=== PATIENT | male | born 1965 | race Two or more races ===

== ENCOUNTER 2016-09-25 10:40 | Inpatient (IN) | payer OTHER ==
[2016-09-25] MEDS ORDERED: ONDANSETRON 4 MG/2 ML VIAL IVPB ONE (11:07)
[2016-09-25] MEDS ORDERED: MAG HYDROX/AL HYDROX/SIMETH 30 ML UNIT-DOSE CUP PO ONE (11:07)
[2016-09-25] MEDS ORDERED: FAMOTIDINE 20 MG/50 ML IVPB 50 ML IVPB ONE ×2 (11:07→11:25)
[2016-09-25] MEDS ORDERED: SODIUM CHLORIDE 1,000 ML IV STA ×2 (11:07→12:36)
[2016-09-25] MEDS ORDERED: morphine CARPU-JECT 4 MG/1 ML DISP.SYRIN IVPUSH ONE ×2 (11:07→16:59)
[2016-09-25] MEDS ORDERED: ACETAMINOPHEN 325 MG TABLET (FP) PO ONE (11:07)
--- NOTE | 2016-09-25 11:16 | PDOC ---
History of Present Illness - General History Source: Patient, Old Records Exam Limitations: No Limitations <Andrzej Castro - Last Filed: 09/25/16 16:41> - General History Source: Patient - History of Present Illness Initial Comments: 09/25/16 11:20 The patient is a 51 year old male with a significant past medical history of HLD , diverticulitis, and CAD s/p [place] who presents to the Emergency Department with complaints of abdominal pain, nausea, vomiting, and diarrhea since 2:00pm yesterday. Pt reports multiple episodes of diarrhea and vomiting since yesterday. Pt went to [facility] on Monday for an elective cardiac catheterization, where they attempted to open up a clot, but the pt reports that it was unsuccessful. He denies fever, chill, chest pain, SOB, hematuria, dysuria, back pain, headache, dizziness. Pt has a >102 fever rectally while in the ER. (-)sick contact (-) recent travel PSH:cholecystectomy SH: former smoker. Former EtOH use (quit last month) PCP: Dr. Adilson Marinelli <Merline Will - Last Filed: 09/25/16 16:45> - General Chief Complaint: Pain Stated Complaint: ABD PAIN, DIARRHEA, WEAKNESS Time Seen by Provider: 09/25/16 10:56 Past History - Past Medical History Diabetes: Yes GI Disorders: Yes (DIVERTICULITIS) Hypercholesterolemia: Yes Suicide Attempt (Hx): No - Surgical History Cardiac Surgery: Yes (STENT) Cholecystectomy: Yes - Psycho/Social/Smoking Cessation Hx Anxiety: No Suicidal Ideation: No Smoking Status: Yes Smoking History: Never smoked Number of Cigarettes Smoked Daily: 10 Cigars Per Day: 0 'Breaking Loose' booklet given: 08/15/16 Hx Alcohol Use: No Drug/Substance Use Hx: No Substance Use Type: None <Andrzej Castro - Last Filed: 09/25/16 16:41> <Merline Will - Last Filed: 09/25/16 16:45> - Past Medical History Allergies/Adverse Reactions: Allergies Allergy/AdvReac Type Severity Reaction Status Date / Time No Known Allergies Allergy Verified 09/25/16 10:48 Home Medications: Ambulatory Orders Aspirin [Children's Aspirin] 81 mg PO DAILY 09/25/16 Atorvastatin Ca [Lipitor] 80 mg PO HS 09/25/16 Clopidogrel Bisulfate [Plavix -] 75 mg PO DAILY 09/25/16 Lisinopril [Zestril] 2.5 mg PO DAILY 09/25/16 Metformin HCl 500 mg PO DAILY 09/25/16 Metoprolol Succinate [Toprol Xl -] 25 mg PO DAILY 09/25/16 Review of Systems - Review of Systems Able to Perform ROS?: Yes Comments:: 09/25/16 11:21 GENERAL/CONSTITUTIONAL: No fever or chills. No weakness. HEAD, EYES, EARS, NOSE AND THROAT: No change in vision. No ear pain or discharge. No sore throat. CARDIOVASCULAR: No chest pain or shortness of breath. RESPIRATORY: No cough, wheezing, or hemoptysis. GASTROINTESTINAL: Yes: abdominal pain, nausea, vomiting, diarrhea No constipation. GENITOURINARY: No dysuria, frequency, or change in urination. MUSCULOSKELETAL: No joint or muscle swelling or pain. No neck or back pain. SKIN: No rash NEUROLOGIC: No headache, vertigo, loss of consciousness, or change in strength/ sensation. ENDOCRINE: No increased thirst. No abnormal weight change. HEMATOLOGIC/LYMPHATIC: No anemia, easy bleeding, or history of blood clots. ALLERGIC/IMMUNOLOGIC: No hives or skin allergy. All Other Systems: Reviewed and Negative <Merline Will - Last Filed: 09/25/16 16:45> *Physical Exam - Vital Signs Last Vital Signs Temp Pulse Resp BP Pulse Ox 97.7 F 130 H 20 116/68 95 09/25/16 10:46 09/25/16 10:46 09/25/16 10:46 09/25/16 10:46 09/25/16 10:46 <Andrzej Castro - Last Filed: 09/25/16 16:41> - Vital Signs Last Vital Signs Temp Pulse Resp BP Pulse Ox 97.7 F 130 H 20 116/68 95 09/25/16 10:46 09/25/16 10:46 09/25/16 10:46 09/25/16 10:46 09/25/16 10:46 - Physical Exam Comments: 09/25/16 11:23 GENERAL: Awake, alert, and fully oriented, in no acute distress HEAD: No signs of trauma EYES: PERRLA, EOMI, sclera anicteric, conjunctiva clear ENT: Auricles normal inspection, hearing grossly normal, nares patent, oropharynx clear without exudates. Moist mucosa NECK: Normal ROM, supple, no lymphadenopathy, JVD, or masses LUNGS: Breath sounds equal, clear to auscultation bilaterally. No wheezes, and no crackles HEART: +tachycardia. normal S1 and S2, no murmurs, rubs or gallops ABDOMEN: +Superpubic lower quadrant tenderness. Soft, normoactive bowel sounds. No guarding, no rebound. No masses EXTREMITIES: Normal range of motion, no edema. No clubbing or cyanosis. No cords, erythema, or tenderness NEUROLOGICAL: Cranial nerves II through XII grossly intact. Normal speech, normal gait SKIN: Warm, Dry, normal turgor, no rashes or lesions noted. <Merline Will - Last Filed: 09/25/16 16:45> Heart Score/ECG Review #1 ECG reviewed & interpreted by me at: 17:10 09/25/16 11:16 NSR 124, Q wave III, aVF, no std/maynor, normal axis, normal intervals QTC 442 msec <Andrzej Castro - Last Filed: 09/25/16 16:41> ED Treatment Course - LABORATORY CBC & Chemistry Diagram: 09/25/16 11:35 09/25/16 11:35 - RADIOLOGY Radiology Studies Ordered: Category Date Time Status ABDOMEN & PELVIS CT WITH CONTR [CT] Stat CT Scan 09/25/16 11:07 Ordered CHEST X-RAY PORTABLE* [RAD] Stat Radiology 09/25/16 11:06 Ordered <Andrzej Castro - Last Filed: 09/25/16 16:41> - LABORATORY CBC & Chemistry Diagram: 09/25/16 11:35 09/25/16 11:35 <Merline Will - Last Filed: 09/25/16 16:45> Medical Decision Making - Medical Decision Making 09/25/16 11:10 A portion of this note was documented by scribe services under my direction. I have reviewed the details of the note, within reason, and agree with the documentation with the following case summary and management plan written by me. Patient treated in the ED. Nursing notes are reviewed and incorporated into the medical decision-making. Vital signs reviewed. Peripheral IV access obtained by the nurse, laboratory studies are drawn and sent, reviewed and interpreted by myself. Vital Signs Temp Pulse Resp BP Pulse Ox 97.7 F 130 H 20 116/68 95 09/25/16 10:46 09/25/16 10:46 09/25/16 10:46 09/25/16 10:46 09/25/16 10:46 51 year old male with pmh HLD, CAD s/p [place], hx diverticulitis presents to the ED for nausea, vomiting, diarrhea and lower abdominal pain. The patient is having uncontrollable amounts of diarrhea and vomiting. Reports feels somewhat like his diverticulitis. No fevers or sick contacts. As of note, 2 days ago, he went to [facility] for an elective cardiac catheterization where they attempted to "open up a clot", but the patient reports that it was unsuccessful. The patient is noted to have a fever here rectally > 102 degrees. Differential includes diverticulitis, gastroenteritis, colitis. Will obtain labs and CT abdomen and pelvis, treat symptoms, and give IVF and reassess. 09/25/16 16:42 Ct abdomen and pelvis reviewed. No acute findings. CBC, BMP 09/25/16 11:35 09/25/16 11:35 CMP Sodium 142 mmol/L (136-145) 09/25/16 11:35 Potassium 4.2 mmol/L (3.5-5.1) 09/25/16 11:35 Chloride 108 mmol/L (98-107) H 09/25/16 11:35 Carbon Dioxide 22 mmol/L (21-32) 09/25/16 11:35 Anion Gap 12 (8-16) 09/25/16 11:35 BUN 25 mg/dL (7-18) H D 09/25/16 11:35 Creatinine 1.2 mg/dL (0.7-1.3) 09/25/16 11:35 Creat Clearance w eGFR > 60 (>60) 09/25/16 11:35 Random Glucose 157 mg/dL (74-106) H 09/25/16 11:35 Lactic Acid 3.686 mmol/L (0.4-2.0) H* 09/25/16 15:00 Calcium 8.7 mg/dL (8.5-10.1) 09/25/16 11:35 Total Bilirubin 1.6 mg/dL (0.2-1.0) H D 09/25/16 11:35 AST 17 U/L (15-37) D 09/25/16 11:35 ALT 63 U/L (12-78) 09/25/16 11:35 Alkaline Phosphatase 91 U/L (45-117) 09/25/16 11:35 Creatine Kinase 100 IU/L (39-308) 09/25/16 11:35 Troponin I < 0.02 ng/ml (0.00-0.05) D 09/25/16 11:35 Total Protein 8.3 g/dl (6.4-8.2) H 09/25/16 11:35 Albumin 4.4 g/dl (3.4-5.0) 09/25/16 11:35 Labs noted. Lactic acid initially 2.9. After IVF, repeat was 3.7. Given these findings, blood cultures and zosyn ordered. Case discussed with DR. Ayala who accepted the patient to med/surg admission. Case discussed in detail with admitting physician including history, physical exam and ancillary studies. Admitting physician has assumed care for the patient, will follow all pending diagnostics and will complete the evaluation and treatment. <Andrzej Castro - Last Filed: 09/25/16 16:41> - Medical Decision Making 09/25/16 16:20 Dr. Rekha Ayala was paged at [phone] 09/25/16 16:45 case was discussed with Dr. Ayala. <Merline Will - Last Filed: 09/25/16 16:45> *DC/Admit/Observation/Transfer - Discharge Dispostion Admit: Yes <Andrzej Castro - Last Filed: 09/25/16 16:41> - Attestations Scribe Attestion: 09/25/16 11:24 Documentation prepared by Merline Will, acting as medical research scientist for Andrzej Castro MD. <Merline Will - Last Filed: 09/25/16 16:45> Diagnosis at time of Disposition: Lactic acidosis Diarrhea Qualifiers: Diarrhea type: unspecified type Qualified Code(s): R19.7 - Diarrhea, unspecified - Referrals Referrals: Adilson Marinelli MD [Primary Care Provider] -
[2016-09-25] MEDS ORDERED: ACETAMINOPHEN 325 MG TABLET (FP) ONE (11:24)
[2016-09-25] MEDS ORDERED: morphine CARPU-JECT 4 MG/1 ML DISP.SYRIN ONE ×2 (11:24→17:00)
[2016-09-25] MEDS ORDERED: MAG HYDROX/AL HYDROX/SIMETH 30 ML UNIT-DOSE CUP ONE (11:25)
[2016-09-25] MEDS ORDERED: ONDANSETRON 4 MG/2 ML VIAL ONE (11:25)
[2016-09-25 11:59] LABS: BASOPHIL 0.3 % (0-2.0); EOSINOPHIL 0.4 % (0-4.5); MCH 31.4 pg (25.7-33.7); MCHC 33.2 g/dl (32.0-35.9); MEAN CELL VOLUME 94.5 fl (80-96); MEAN PLT VOLUME 10.3 fl (7.5-11.1); NEUTROPHILS 87.3 % (42.8-82.8); PLATELET COUNT 165 K/MM3 (134-434); RDW 13.4 % (11.9-15.9); WHITE BLOOD COUNT 12.1 K/mm3 (4.0-10.0)
[2016-09-25 12:00] LABS: URINE APPEARANCE CLOUDY; URINE BILIRUBIN NEGATIVE (NEGATIVE); URINE BLOOD NEGATIVE (NEGATIVE); URINE COLOR AMBER; URINE GLUCOSE (UA) NEGATIVE (NEGATIVE); URINE KETONE NEGATIVE (NEGATIVE); URINE LEUK ESTERASE NEGATIVE (NEGATIVE); URINE NITRITE NEGATIVE (NEGATIVE); URINE UROBILINOGEN NEGATIVE E.U./dl (0.2-1.0)
[2016-09-25 12:08] LABS: URINE PROTEIN 1+ (NEGATIVE)
[2016-09-25 12:10] LABS: URINE BACTERIA RARE /hpf (NONE SEEN); URINE MUCUS MANY; URINE RBC 2 /hpf (0-3); URINE WBC 3 /hpf (3-5)
[2016-09-25 12:11] LABS: INR 1.06 (0.82-1.09); PROTHROMBIN TIME (PATIENT) 11.7 SEC (9.98-11.88)
[2016-09-25 12:14] LABS: ACTIVATED PTT 32.5 SECONDS (26.9-34.4)
[2016-09-25 12:21] LABS: ALBUMIN 4.4 g/dl (3.4-5.0); ANION GAP 12 (8-16); BILIRUBIN,TOTAL 1.6 mg/dL (0.2-1.0); CALCIUM 8.7 mg/dL (8.5-10.1); CO2 22 mmol/L (21-32); CREATININE 1.2 mg/dL (0.7-1.3); GLUCOSE,RANDOM 157 mg/dL (74-106); SGOT/AST 17 U/L (15-37); SGPT/ALT 63 U/L (12-78); TOT PROT 8.3 g/dl (6.4-8.2)
[2016-09-25 12:23] LABS: ALK PHOS 91 U/L (45-117); TROPONIN I < 0.02 ng/ml (0.00-0.05)
[2016-09-25 12:41] LABS: VENOUS PH 7.37 (7.31-7.41)
[2016-09-25 12:42] LABS: VENOUS BLOOD GAS HCO3 22.6 meq/L (22-29)
[2016-09-25] MEDS ORDERED: PIPERACILLIN/TAZOB 3.375 GM/50 ML PRE-DOCKED IVPB ONE (16:11)
[2016-09-25] MEDS ORDERED: PIPERACILLIN/TAZOB 3.375 GM 50 ML IVPB ONE (16:32)
[2016-09-25] MEDS ORDERED: SODIUM CHLORIDE 1,000 ML IV ONE (16:38)
[2016-09-25 17:56] VITALS: BMI 38.9
[2016-09-25] MEDS ORDERED: KETOROLAC TROMETHAMINE 30 MG/1 ML VIAL IVPUSH ONE (19:00)
[2016-09-25] MEDS ORDERED: DEXTROSE 5%-0.45% SALINE 1,000 ML IV SCH (19:00)
[2016-09-26] MEDS ORDERED: KETOROLAC TROMETHAMINE 30 MG/1 ML VIAL IVPUSH PRN (00:39)
--- NOTE | 2016-09-26 01:07 | HP ---
Admitting History and Physical - Admission Chief Complaint: Nausea/vomiting/diarrhea History of Present Illness: Pt is a 51 y/o male w/ PMH significant for HTN, HLD, CAD, S/P GA(08/10) w/ cardiac cath. Pt was seen at [facility] on 09/23/16 for cardiac cath to get a blood clot? but it was unsuccessful. Pt now presented to the ER w/ acute onset of abdominal pain w/ nausea and vomiting wc began around 2 am. Pt then developed diarrhea and was found to have tmax of 102.5 in the ER. He denied any fever/chills at home. In the ER pt found to be septic w/ tachycardia/ hypotension and elevated lactic acid. - Past Medical History Cardiovascular: Yes: Hyperlipdemia - Past Surgical History Past Surgical History: Yes: Cholecystectomy - Advance Directives Advance Directives: Yes: Health Care Proxy - Smoking History Smoking history: Former smoker Have you smoked in the past 12 months: Yes Aproximately how many cigarettes per day: 10 If you are a former smoker, when did you quit?: BEFORE AUGUST 17 2016 - Alcohol/Substance Use Hx Alcohol Use: No - Social History ADL: Independent History of Recent Travel: No Home Medications - Allergies Allergies/Adverse Reactions: Allergies Allergy/AdvReac Type Severity Reaction Status Date / Time No Known Allergies Allergy Verified 09/25/16 10:48 - Home Medications Home Medications: Ambulatory Orders Aspirin [Children's Aspirin] 81 mg PO DAILY 09/25/16 Atorvastatin Ca [Lipitor] 80 mg PO HS 09/25/16 Clopidogrel Bisulfate [Plavix -] 75 mg PO DAILY 09/25/16 Lisinopril [Zestril] 2.5 mg PO DAILY 09/25/16 Metformin HCl 500 mg PO DAILY 09/25/16 Metoprolol Succinate [Toprol Xl -] 25 mg PO DAILY 09/25/16 Family Disease History - Family Disease History Family History: Unremarkable Family Disease History: Heart Disease: Father ( of [place] at age 32) Review of Systems - Review of Systems Constitutional: reports: Loss of Appetite HENT: reports: No Symptoms Neck: reports: No Symptoms Cardiovascular: reports: No Symptoms Respiratory: reports: No Symptoms Gastrointestinal: reports: Abdominal Pain, Diarrhea, Nausea, Vomiting Genitourinary: reports: No Symptoms Musculoskeletal: reports: No Symptoms Neurological: reports: No Symptoms Physical Examination Vital Signs: Vital Signs Temperature 99.6 F 09/25/16 22:29 Pulse Rate 99 H 09/25/16 22:29 Respiratory Rate 18 09/25/16 22:29 Blood Pressure 103/58 09/25/16 22:29 O2 Sat by Pulse Oximetry (%) 91 L 09/25/16 21:00 Constitutional: Yes: Well Nourished HENT: Yes: WNL Neck: Yes: Supple Cardiovascular: Yes: WNL, Regular Rate and Rhythm Respiratory: Yes: WNL, Regular, CTA Bilaterally Gastrointestinal: Yes: WNL, Normal Bowel Sounds, Soft, Abdomen, Obese Musculoskeletal: Yes: WNL Extremities: Yes: WNL Edema: No Neurological: Yes: WNL, Alert, Oriented Problem List - Problems (1) Diarrhea Code(s): R19.7 - DIARRHEA, UNSPECIFIED Qualifiers: Diarrhea type: unspecified type Qualified Code(s): R19.7 - Diarrhea, unspecified (2) Epigastric pain Code(s): R10.13 - EPIGASTRIC PAIN Assessment/Plan 1. Vomiting/nausea/abdominal pain ?gastroenteritis Cont IVF/IV antibxs(flagyl/ levaquin) GI/ID consults Lactic acid/wbc have decreased 2. Elevated LFT's Pt does have a h/o ETOH abuse but hasn't had a drink in yrs Check US abd 3. CAD/HTN/HLD Will get cardio consult Unclear why pt was having elective cath on 09/23/16
[2016-09-26] MEDS ORDERED: ACETAMINOPHEN 325 MG TABLET (FP) PO PRN (01:08)
[2016-09-26] MEDS ORDERED: LEVOFLOXACIN 500 MG IVPB 100 ML IVPB ONE (01:15)
[2016-09-26] MEDS ORDERED: LEVOFLOXACIN 500 MG IVPB 100 ML IVPB SCH (01:16)
[2016-09-26] MEDS: DEXTROSE 5%-0.45% SALINE 1,000 ML IV SCH ×2 (01:34→09:51)
[2016-09-26] MEDS: METRONIDAZOLE 500 MG PREMIXED 100 ML IVPB SCH ×3 (01:37→18:10)
[2016-09-26] MEDS: LEVOFLOXACIN 500 MG IVPB 100 ML IVPB SCH (01:40)
[2016-09-26] MEDS: INSULIN SLIDING SCALE (NOVOLOG) 1 VIAL SQ SCH ×4 (06:21→21:41)
[2016-09-26] MEDS: metFORMIN HCL 500 MG TABLET (FP) PO SCH (06:22)
[2016-09-26 07:44] LABS: BASOPHIL 0.4 % (0-2.0); EOSINOPHIL 0.9 % (0-4.5); MCHC 34.3 g/dl (32.0-35.9); MEAN CELL VOLUME 93.3 fl (80-96); MEAN PLT VOLUME 9.6 fl (7.5-11.1); NEUTROPHILS 72.2 % (42.8-82.8); PLATELET COUNT 116 K/MM3 (134-434); RDW 13.1 % (11.9-15.9); WHITE BLOOD COUNT 7.5 K/mm3 (4.0-10.0)
[2016-09-26 08:09] LABS: ALBUMIN 3.2 g/dl (3.4-5.0); CALCIUM 7.6 mg/dL (8.5-10.1)
[2016-09-26 08:16] LABS: ALK PHOS 55 U/L (45-117); ANION GAP 9 (8-16); BILIRUBIN,TOTAL 1.7 mg/dL (0.2-1.0); CO2 25 mmol/L (21-32); GLUCOSE,RANDOM 123 mg/dL (74-106); SGOT/AST 63 U/L (15-37); SGPT/ALT 117 U/L (12-78)
[2016-09-26] MEDS ORDERED: PT OWN MED DRAWER 7, Y5N ONE (09:36)
[2016-09-26] MEDS: CLOPIDOGREL BISULFATE 75 MG TABLET (FP) PO SCH (09:45)
[2016-09-26] MEDS: ASPIRIN 81 MG CHEWABLE TABLETS PO SCH (09:45)
[2016-09-26] MEDS: HEPARIN NA (PORCINE) 5,000 UNITS/ML 1ML VIAL SQ SCH ×2 (09:46→21:40)
[2016-09-26] MEDS: METOPROLOL SUCCINATE 25 MG TAB.SR.24H (FP) PO SCH (11:23)
--- NOTE | 2016-09-26 13:08 | EKG ---
Test Reason : Blood Pressure : / mmHG Vent. Rate : 124 BPM Atrial Rate : 124 BPM P-R Int : 124 ms QRS Dur : 082 ms QT Int : 308 ms P-R-T Axes : 047 028 053 degrees QTc Int : 442 ms SINUS TACHYCARDIA CANNOT RULE OUT INFERIOR-POSTERIOR INFARCT , AGE UNDETERMINED ABNORMAL ECG WHEN COMPARED WITH ECG OF 16-AUG-2016 03:12, VENT. RATE HAS INCREASED BY 53 BPM Confirmed by GRACE RUBIN MD ([id number]) on 09/26/2016 1:07:55 PM Referred By: Overread By: GRACE RUBIN MD
--- NOTE | 2016-09-26 18:50 | CONSULT ---
Consult Consult Specialty:: infectious diseases Referred by:: Reason for Consultation:: fever,dirrhoea - History of Present Illness Chief Complaint: dirrhoea History of Present Illness: 51 year old male with a significant past medical history of HLD, diverticulitis , and CAD s/p [place] who presents to the Emergency Department with complaints of abdominal pain, nausea, vomiting, and diarrhea since 2:00pm yesterday. Pt reports multiple episodes of diarrhea and vomiting since yesterday. Pt went to [facility] on Monday for an elective cardiac catheterization, where they attempted to open up a clot, but the pt reports that it was unsuccessful. He denies fever, chill, chest pain, SOB, hematuria, dysuria, back pain, headache, dizziness. Pt has a >102 fever rectally while in the Er the above was the history of the patient on admission. patient now says he is having dirrhoea every 10 min patient was worked up and imaging studies were done which did not show nay pathology currently patient is o levaquin and flagyl - History Source History Provided By: Medical Record, Transfer Record Limitations to Obtaining History: Language Barrier - Past Medical History Cardio/Vascular: Yes: Hyperlipdemia - Past Surgical History Past Surgical History: Yes: Cholecystectomy - Alcohol/Substance Use Hx Alcohol Use: No - Smoking History Smoking history: Former smoker Have you smoked in the past 12 months: Yes Aproximately how many cigarettes per day: 10 If you are a former smoker, when did you quit?: BEFORE AUGUST 17 2016 - Social History ADL: Independent History of Recent Travel: No Home Medications - Allergies Allergies/Adverse Reactions: Allergies Allergy/AdvReac Type Severity Reaction Status Date / Time No Known Allergies Allergy Verified 09/25/16 10:48 - Home Medications Home Medications: Ambulatory Orders Aspirin [Children's Aspirin] 81 mg PO DAILY 09/25/16 Atorvastatin Ca [Lipitor] 80 mg PO HS 09/25/16 Clopidogrel Bisulfate [Plavix -] 75 mg PO DAILY 09/25/16 Lisinopril [Zestril] 2.5 mg PO DAILY 09/25/16 Metformin HCl 500 mg PO DAILY 09/25/16 Metoprolol Succinate [Toprol Xl -] 25 mg PO DAILY 09/25/16 Family Disease History - Family Disease History Family Disease History: Heart Disease: Father ( of [place] at age 32) Review of Systems - Review of Systems Constitutional: reports: Fever Eyes: reports: No Symptoms HENT: reports: No Symptoms Neck: reports: No Symptoms Cardiovascular: reports: No Symptoms Respiratory: reports: No Symptoms Gastrointestinal: reports: Abdominal Pain, Diarrhea Genitourinary: reports: No Symptoms Musculoskeletal: reports: No Symptoms Integumentary: reports: No Symptoms Neurological: reports: No Symptoms Endocrine: reports: No Symptoms Hematology/Lymphatic: reports: No Symptoms Psychiatric: reports: No Symptoms Physical Exam Vital Signs: Vital Signs Temperature 98.7 F 09/26/16 14:36 Pulse Rate 78 09/26/16 14:36 Respiratory Rate 20 09/26/16 14:36 Blood Pressure 96/70 09/26/16 14:36 O2 Sat by Pulse Oximetry (%) 98 09/26/16 09:00 Constitutional: Yes: Well Nourished, No Distress, Calm Eyes: Yes: Conjunctiva Clear HENT: Yes: Atraumatic Neck: Yes: Supple, Trachea Midline Respiratory: Yes: Regular, CTA Bilaterally Gastrointestinal: Yes: Normal Bowel Sounds, Soft, Tenderness. No: Tenderness, Epigastrium, Tenderness, Rebound Musculoskeletal: Yes: WNL Extremities: Yes: WNL Neurological: Yes: Alert, Oriented Psychiatric: Yes: Alert Labs: CBC, BMP 09/26/16 07:15 09/26/16 07:15 Imaging - Results Chest X-ray: Report Reviewed, Image Reviewed Cat Scan: Report Reviewed, Image Reviewed Assessment/Plan gastroenteritis r/o cdiff fever r/o uti leukocytosis plan continue levaquin and flagyl for now hydration await for all cx reports
[2016-09-26] MEDS ORDERED: ATORVASTATIN CA 80 MG TABLET (FP) PO SCH (22:00)
[2016-09-27] MEDS: DEXTROSE 5%-0.45% SALINE 1,000 ML IV SCH (00:36)
[2016-09-27] MEDS: METRONIDAZOLE 500 MG PREMIXED 100 ML IVPB SCH ×2 (02:21→10:03)
[2016-09-27] MEDS: metFORMIN HCL 500 MG TABLET (FP) PO SCH (06:50)
[2016-09-27] MEDS: INSULIN SLIDING SCALE (NOVOLOG) 1 VIAL SQ SCH ×2 (06:51→11:43)
[2016-09-27] MEDS: ASPIRIN 81 MG CHEWABLE TABLETS PO SCH (10:02)
[2016-09-27] MEDS: METOPROLOL SUCCINATE 25 MG TAB.SR.24H (FP) PO SCH (10:02)
[2016-09-27] MEDS: CLOPIDOGREL BISULFATE 75 MG TABLET (FP) PO SCH (10:03)
[2016-09-27] MEDS: HEPARIN NA (PORCINE) 5,000 UNITS/ML 1ML VIAL SQ SCH (10:04)
[2016-09-27 10:44] VITALS: BP 103/70; PULSE 70; TEMP 98.3
--- NOTE | 2016-09-27 11:19 | PN ---
Progress Note (short form) - Note Progress Note: Cardiology Consult Dictated 51M with CAD s/p NSTEMI 07/2016 admitted with viral gastroenteritis. Plan: -hydrate -Monitor electrolytes -When tolerating PO, can likely be discharged. -Continue home cardiac meds. -Staged intervention planned at [facility] later this month.
[2016-09-27] MEDS: LEVOFLOXACIN 500 MG IVPB 100 ML IVPB SCH (11:38)
--- NOTE | 2016-09-27 12:02 | CONS ---
DATE OF CONSULTATION: 09/27/2016 REQUESTING PHYSICIAN: Rekha Ayala MD REASON FOR CONSULTATION: History of coronary disease. HISTORY: The patient is a 51-year-old male with coronary disease status post nonSTEMI in July 2015 with primary PCI at [facility]. He also has a history of diabetes, hypertension, hyperlipidemia, former smoker, status post cholecystectomy who presents for evaluation of 1 day of multiple episodes of vomiting and diarrhea. He denies sick contacts. He denies chest pain, shortness of breath, palpitations, PND, orthopnea. This morning after hydration he feels better with no further nausea, vomiting, or diarrhea. PAST MEDICAL HISTORY: As above. He reports some residual coronary disease for which a staged intervention is planned later this morning. HOME MEDICATIONS: Include Toprol 25 mg p.o. daily, metformin 500 mg p.o. daily, lisinopril 2.5 p.o. daily, Plavix 75 p.o. daily, Lipitor 80 p.o. nightly, and baby aspirin. ALLERGIES: He has no known drug allergies. FAMILY HISTORY: Father of an PR in his 30s. SOCIAL HISTORY: Former smoker. No alcohol. He works in a [employer] in [place]. PHYSICAL EXAMINATION: Vital Signs: He is afebrile. Temperature 98.3, on presentation 102.5. Initially mildly hypotensive as low as 99 systolic, now 107-103 systolic, O2 saturation 97 on room air. HEENT: He is anicteric. No JVD, no bruits. Heart: S1, S2 regular. No murmurs. Chest: Clear. Abdomen: Soft and nontender. No rebound or guarding. Extremities: No edema. Blood cultures are pending but have no growth to date. CBC: White count initially 12.1 now down to 7.5, hematocrit 55.6 likely due to dehydration/hemoconcentration now down to 41.1, platelets 116, INR 1.06. Sodium 140, potassium 3.5, creatinine 1. Initial BUN 25 now down to 14. Initial creatinine 1.2 down to 1 with hydration. Lactic acid was normal 0.879 on September 26 initially elevated to 2.9 on presentation. AST 63, ALT 117. Slight bump likely due to hypotension initially, probably due to hydration. Urinalysis had 1+ protein. Urinary acetone was negative. Abdomen and pelvis CT diverticulosis with no evidence of diverticulosis, no acute pathology. Abdominal ultrasound: Fatty liver. EKG: Sinus with old inferoposterior PR. Troponin on presentation negative. ASSESSMENT: A 51-year-old male with hypertension, diabetes, coronary disease status post non-ST elevation myocardial infarction in July with primary percutaneous coronary intervention who presents with nausea, vomiting, diarrhea consistent with gastroenteritis now resolving/resolved. PLAN: 1. Hydration. 2. When tolerating p.o. can likely discharge home. 3. Continue home cardiac medications. 4. Plan for staged PCI later this month as originally planned. No further inpatient cardiac workup is indicated at this time. VICKY BACON M.D. [id number]
--- NOTE | 2016-09-27 12:34 | CONSULT ---
Consult Consult Specialty:: gastroenerology Referred by:: Dr Ayala/Adilson Marinelli Reason for Consultation:: diarrhea - History of Present Illness History of Present Illness: The patient is a 51 year old male with a significant past medical history of HLD , diverticulitis, and CAD s/p [place] who presents to the Emergency Department with complaints of abdominal pain, nausea, vomiting, and diarrhea since 2:00pm yesterday. Pt reports multiple episodes of diarrhea and vomiting since yesterday. Pt went to [facility] on Monday for an elective cardiac catheterization, where they attempted to open up a clot, but the pt reports that it was unsuccessful. He denies fever, chill, chest pain, SOB, hematuria, dysuria, back pain, headache, dizziness. Pt has a >102 fever rectally while in the ER. Patient received Levaquin and Flagyl overnight. Today he feels better, denies having any symptoms. - Past Medical History Cardio/Vascular: Yes: Hyperlipdemia - Past Surgical History Past Surgical History: Yes: Cholecystectomy - Alcohol/Substance Use Hx Alcohol Use: No - Smoking History Smoking history: Former smoker Have you smoked in the past 12 months: Yes Aproximately how many cigarettes per day: 10 If you are a former smoker, when did you quit?: BEFORE AUGUST 17 2016 - Social History ADL: Independent History of Recent Travel: No Home Medications - Allergies Allergies/Adverse Reactions: Allergies Allergy/AdvReac Type Severity Reaction Status Date / Time No Known Allergies Allergy Verified 09/25/16 10:48 - Home Medications Home Medications: Ambulatory Orders Aspirin [Children's Aspirin] 81 mg PO DAILY 09/25/16 Atorvastatin Ca [Lipitor] 80 mg PO HS 09/25/16 Clopidogrel Bisulfate [Plavix -] 75 mg PO DAILY 09/25/16 Lisinopril [Zestril] 2.5 mg PO DAILY 09/25/16 Metformin HCl 500 mg PO DAILY 09/25/16 Metoprolol Succinate [Toprol Xl -] 25 mg PO DAILY 09/25/16 Family Disease History - Family Disease History Family Disease History: Heart Disease: Father ( of [place] at age 32) Physical Exam-GI Vital Signs: Vital Signs Temperature 98.3 F 09/27/16 10:15 Pulse Rate 70 09/27/16 10:15 Respiratory Rate 20 09/27/16 10:15 Blood Pressure 103/70 09/27/16 10:15 O2 Sat by Pulse Oximetry (%) 97 09/26/16 21:00 Constitutional: Yes: Well Nourished Eyes: Yes: Conjunctiva Clear HENT: Yes: Atraumatic Neck: Yes: Supple Cardiovascular: Yes: Bruit Respiratory: Yes: CTA Bilaterally ...Palpate: Yes: Soft. No: Firm/Rigid, Guarding, Hepatomegaly, Pulsatile Mass, Splenomegaly, Tenderness Labs: CBC, BMP 09/26/16 07:15 09/26/16 07:15 INR, PTT INR 1.06 (0.82-1.09) 09/25/16 11:35 Hepatic Panel Total Bilirubin 1.7 mg/dL (0.2-1.0) H 09/26/16 07:15 AST 63 U/L (15-37) H D 09/26/16 07:15 ALT 117 U/L (12-78) H D 09/26/16 07:15 Alkaline Phosphatase 55 U/L (45-117) D 09/26/16 07:15 Albumin 3.2 g/dl (3.4-5.0) L D 09/26/16 07:15 Problem List - Problems (1) Diarrhea Assessment/Plan: most likely infectious in origin R> advancer diet ok to discharge made aware to ff-up for further w/u continue antibiotics for 3 days Code(s): R19.7 - DIARRHEA, UNSPECIFIED Qualifiers: Diarrhea type: unspecified type Qualified Code(s): R19.7 - Diarrhea, unspecified (2) Elevated liver enzymes Assessment/Plan: most likely secondary to statins R> take statin every other day, further gi w/u as an outpatient Code(s): R74.8 - ABNORMAL LEVELS OF OTHER SERUM ENZYMES
[2016-09-27 14:10] LABS: URINE MARIJUANA THC NEGATIVE ng/ml (CUTOFF=50)
--- NOTE | 2016-09-27 14:46 | PN ---
Progress Note, Physician History of Present Illness: stable no new events patient feeling better - Current Medication List Current Medications: Active Medications Acetaminophen (Tylenol -) 650 mg PO Q6H PRN PRN Reason: FEVER OR PAIN Last Admin: 09/26/16 02:32 Dose: 650 mg Aspirin (Asa -) 81 mg PO DAILY [facility] Last Admin: 09/27/16 10:02 Dose: 81 mg Atorvastatin Calcium (Lipitor -) 80 mg PO HS [facility] Last Admin: 09/26/16 21:40 Dose: 80 mg Clopidogrel Bisulfate (Plavix -) 75 mg PO DAILY [facility] Last Admin: 09/27/16 10:03 Dose: 75 mg Heparin Sodium (Porcine) (Heparin -) 5,000 unit SQ BID [facility] Last Admin: 09/27/16 10:04 Dose: 5,000 unit Dextrose/Sodium Chloride (D5-1/2ns -) 1,000 mls @ 75 mls/hr IV ASDIR [facility] Last Admin: 09/27/16 00:36 Dose: 75 mls/hr Metronidazole (Flagyl 500mg Premixed Ivpb -) 100 mls @ 100 mls/hr IVPB Q8H-IV [facility] Last Admin: 09/27/16 10:03 Dose: 100 mls/hr Levofloxacin (Levaquin 500 Mg Premixed Ivpb -) 100 mls @ 100 mls/hr IVPB DAILY [facility] Last Admin: 09/27/16 11:38 Dose: 100 mls/hr Insulin Aspart (Novolog Vial Sliding Scale -) 1 vial SQ ACHS [facility] PRN Reason: Protocol Last Admin: 09/27/16 11:43 Dose: Not Given Ketorolac Tromethamine (Toradol Injection -) 30 mg IVPUSH Q6H PRN PRN Reason: PAIN Stop: 10/01/16 00:38 Last Admin: 09/26/16 18:24 Dose: 30 mg Metformin HCl (Glucophage -) 500 mg PO DAILY@0700 [facility] Last Admin: 09/27/16 06:50 Dose: 500 mg Metoprolol Succinate (Toprol Xl -) 25 mg PO DAILY [facility] Last Admin: 09/27/16 10:02 Dose: 25 mg - Objective Vital Signs: Vital Signs Temperature 98.3 F 09/27/16 10:15 Pulse Rate 70 09/27/16 10:15 Respiratory Rate 20 09/27/16 10:15 Blood Pressure 103/70 09/27/16 10:15 O2 Sat by Pulse Oximetry (%) 91 L 09/27/16 09:00 Constitutional: Yes: No Distress, Calm Cardiovascular: Yes: Regular Rate and Rhythm Respiratory: Yes: Regular, CTA Bilaterally Gastrointestinal: Yes: Normal Bowel Sounds, Soft Musculoskeletal: Yes: WNL Extremities: Yes: WNL Neurological: Yes: Alert, Oriented Psychiatric: Yes: Alert Labs: CBC, BMP 09/26/16 07:15 09/26/16 07:15 INR, PTT INR 1.06 (0.82-1.09) 09/25/16 11:35 Assessment/Plan gastroenteritis r/o cdiff fever r/o uti leukocytosis plan continue current mgmt rest as per primary
== END 2016-09-27 15:17 | disposition home or self-care (01) | DRG 392 ==
LOC: JER 10:40 → JERBED 16:47 → J5S 18:22
PROVIDERS: ADMIT Internal Medicine; ATTEND Internal Medicine
DX: A08.39 Other viral enteritis (principal); K57.92 Diverticulitis of intestine, part unspecified, without perforation or abscess without bleeding; R11.2 Nausea with vomiting, unspecified; A08.8 Other specified intestinal infections; I25.10 Atherosclerotic heart disease of native coronary artery without angina pectoris; I25.2 Old myocardial infarction; E11.9 Type 2 diabetes mellitus without complications; Z87.891 Personal history of nicotine dependence; Z95.5 Presence of coronary angioplasty implant and graft
CPT/HCPCS: 36415; 71010-TC; 74177-TC; 76700-TC; 80053; 80307; 81003; 81015; 82009; 82550; 82803; 83605; 84484; 85025; 85610; 85730; 87040; 87086; 87324; 87449; 93005; 93010; 99285-25; J1644

== ENCOUNTER 2017-02-07 07:56 | Emergency (ER) | payer OTHER ==
[2017-02-07 08:33] VITALS: BMI 37.8
--- NOTE | 2017-02-07 09:27 | PDOC ---
History of Present Illness - General Chief Complaint: Pain Stated Complaint: ABD PAIN Time Seen by Provider: 02/07/17 09:26 History Source: Patient Exam Limitations: No Limitations - History of Present Illness Travel History: No Initial Comments: 02/07/17 10:02 52y M hx of dm, hl, cad s/p pci, pancreatic disease, diverticulutis, presents with abdominal pain since monday. Pt states he starting having lower abdominal pain that was intermittent but became more severe over the past 2 days, there is no associated fever/chills, nausea/vomiting, diarrhea, melena, dysuria, hematuria. Pt states the pain is occasionally in the RLQ and rdiates to the LLQ and up to the epigastrium. There is no associated diaphoresis, sob, back pain. pt denies any chest pain, exertional symptoms. pt states on monday he had some dietary indiscretions where he ate pork, rice and drank some alcohol, which he is not supposed to eat. surgical hx: pci, cholecystectomy Past History - Past Medical History Allergies/Adverse Reactions: Allergies Allergy/AdvReac Type Severity Reaction Status Date / Time No Known Allergies Allergy Verified 02/07/17 08:33 Home Medications: Ambulatory Orders Atorvastatin Ca [Lipitor] 80 mg PO DAILY 09/25/16 Clopidogrel Bisulfate [Plavix -] 75 mg PO DAILY 09/25/16 Lisinopril [Zestril] 2.5 mg PO DAILY 09/25/16 Metformin HCl 500 mg PO DAILY 09/25/16 Metoprolol Succinate [Toprol XL -] 25 mg PO DAILY 09/25/16 Ciprofloxacin [Cipro -] 500 mg PO Q12H #20 tablet 02/07/17 Lipase/Protease/Amylase [Caro Dr 36,000 Units Capsule] 1 each PO TID 02/07/17 Metronidazole [Flagyl -] 500 mg PO DAILY #20 tablet 02/07/17 Anemia: No Asthma: No Cancer: No Cardiac Disorders: Yes (2015 [facility] STENT INSERTION) CVA: No COPD: No CHF: No Dementia: No Diabetes: Yes GI Disorders: Yes (DIVERTICULITIS) Disorders: No HTN: No Hypercholesterolemia: Yes Liver Disease: No Suicide Attempt (Hx): No Seizures: No Thyroid Disease: No - Surgical History Abdominal Surgery: Yes Appendectomy: No Cardiac Surgery: Yes (STENT) Cholecystectomy: Yes Lung Surgery: No Neurologic Surgery: No Orthopedic Surgery: No - Psycho/Social/Smoking Cessation Hx Anxiety: No Suicidal Ideation: No Smoking Status: Yes Smoking History: Current every day smoker Have you smoked in the past 12 months: Yes Number of Cigarettes Smoked Daily: 10 If you are a former smoker, when did you quit?: BEFORE AUGUST 17 2016 Cigars Per Day: 0 Information on smoking cessation initiated: No 'Breaking Loose' booklet given: 09/25/16 Hx Alcohol Use: No Drug/Substance Use Hx: No Substance Use Type: None Hx Substance Use Treatment: No Review of Systems - Review of Systems Able to Perform ROS?: Yes Comments:: 02/07/17 10:09 Constitutional - no reported Fever, Chills, HEENT: no reported vision changes, sore throat Respiratory: no reported cough, sob, hemoptysis Cardiac: no reported chest pain, palpitations, light headedness, leg swelling Abd/GI: + abd pain, no reported nausea, vomiting, blood per rectum, melena, diarrhea : no reported dysuria, frequency, discharge Musculskelatal - no reported back pain, joint swelling skin - no reported bruising, erythema, rash neurological: no reported headache, numbness, focal weakness, tingling, ataxia, hematologic: no reported anemia, easy bruising, easy bleeding *Physical Exam - Vital Signs Last Vital Signs Temp Pulse Resp BP Pulse Ox 98.2 F 75 18 128/90 97 02/07/17 08:30 02/07/17 08:30 02/07/17 08:30 02/07/17 08:30 02/07/17 08:30 - Physical Exam Comments: 02/07/17 10:09 GENERAL: The patient is awake, alert, and fully oriented, Nontoxic - in no acute distress. HEAD: Normocephalic, atraumatic. EYES: extraocular movements intact, sclera anicteric, conjunctiva clear. ENT: Normal voice, Moist mucous membranes. NECK: Normal range of motion, supple LUNGS: Breath sounds equal, clear to auscultation bilaterally. No wheezes, no rhonchi, no rales. HEART: Regular rate and rhythm, normal S1 and S2 without murmur, rub or gallop. ABDOMEN: +lower abdominal tenderness R>L, +voluntary guarding, normoactive bowel sounds. No CVA tenderness EXTREMITIES: Normal range of motion, no edema. No clubbing or cyanosis. No cords, erythema, or tenderness. NEUROLOGICAL: No facial assymetry, Normal speech, PSYCH: Normal mood, normal affect. SKIN: Warm, Dry, normal turgor, Heart Score/ECG Review - ECG Impressions Comment:: 02/07/17 10:11 Twelve-lead EKG was performed and reviewed by me. There is normal sinus rhythm with a normal rate. Rate of 67 The axis is normal. The intervals are normal. There is normal R wave progression There are no ST or T wave abnormalities. Impression: Normal twelve-lead EKG ED Treatment Course - LABORATORY CBC & Chemistry Diagram: 02/07/17 10:31 02/07/17 10:31 Medical Decision Making - Medical Decision Making 02/07/17 10:10 52y M hx of htn, hl, cad sp PCI, pancreatitic disease on creon, diverticulitis prsents with lower abdominal pain x 3 days w/o associated f/c, n/v, cp, diaphoresis, sob. on exam pt has +tenderness to lwoer abdomen R>L suspect possible appendicits will ck labs fluids for hydration will obtain CT abdomen 02/07/17 14:52 labs reviewed and unrmarakble ct abd shows colitiis pt written fora bx will raesses the pt, if +pain will consider inpatient management with abx, but if feeling well, will consider outpatient management 02/07/17 16:27 pt feeling improved would like to try outpatient management of his colitis but i discussed strict return precautions will have pt fu with pmd in 2 days I discussed the physical exam findings, ancillary test results and final diagnoses with the patient. I answered all of the patient's questions. The patient was satisfied with the care received and felt comfortable with the discharge plan and treatment plan. The patient will call their primary care physician within 24 hours to arrange follow-up and will return to the Emergency Department with any new, persistent or worsening symptoms. *DC/Admit/Observation/Transfer Diagnosis at time of Disposition: Colitis - Discharge Dispostion Disposition: HOME Condition at time of disposition: Improved Admit: No - Referrals Referrals: Adilson Marinelli MD [Primary Care Provider] - - Patient Instructions Printed Discharge Instructions: DI for Colitis Additional Instructions: Return to the emergency department immediately with ANY new, persistent or worsening symptoms including worsening abdominal pain, fevers, inability to tolerate oral intake, chest pain, shortness of breath or any other concerns. Take antibiotics as prescribed. Stay well hydrated. You MUST call and follow up with your doctor tomorrow. Your emergency department visit is not complete without a followup with your doctor for reevaluation. Please make sure your doctor reviews the results of your emergency evaluation. Print Language: NIGERIAN
[2017-02-07] MEDS ORDERED: morphine CARPU-JECT 4 MG/1 ML DISP.SYRIN IVPUSH ONE (10:01)
[2017-02-07] MEDS ORDERED: morphine CARPU-JECT 4 MG/1 ML DISP.SYRIN ONE (10:45)
[2017-02-07 11:03] LABS: BASOPHIL 0.4 % (0-2.0); EOSINOPHIL 2.9 % (0-4.5); MCH 31.6 pg (25.7-33.7); MCHC 33.9 g/dl (32.0-35.9); MEAN PLT VOLUME 10.2 fl (7.5-11.1); NEUTROPHILS 63.9 % (42.8-82.8); PLATELET COUNT 157 K/MM3 (134-434); RDW 13.6 % (11.9-15.9); WHITE BLOOD COUNT 9.9 K/mm3 (4.0-10.0)
[2017-02-07 11:22] LABS: URINE APPEARANCE CLEAR; URINE BILIRUBIN NEGATIVE (NEGATIVE); URINE BLOOD NEGATIVE (NEGATIVE); URINE COLOR YELLOW; URINE GLUCOSE (UA) NEGATIVE (NEGATIVE); URINE KETONE NEGATIVE (NEGATIVE); URINE LEUK ESTERASE NEGATIVE (NEGATIVE); URINE NITRITE NEGATIVE (NEGATIVE); URINE PROTEIN NEGATIVE (NEGATIVE); URINE UROBILINOGEN NEGATIVE E.U./dl (0.2-1.0)
[2017-02-07 11:27] LABS: ALBUMIN 3.7 g/dl (3.4-5.0); ANION GAP 9 (8-16); BILIRUBIN,TOTAL 1.2 mg/dL (0.2-1.0); CALCIUM 8.7 mg/dL (8.5-10.1); CO2 26 mmol/L (21-32); COCKROFT - GAULT 127.51; CREATININE 0.9 mg/dL (0.7-1.3); GLUCOSE,RANDOM 90 mg/dL (74-106); SGPT/ALT 43 U/L (12-78); TOT PROT 7.3 g/dl (6.4-8.2)
[2017-02-07 11:28] LABS: ALK PHOS 89 U/L (45-117)
[2017-02-07 12:04] LABS: SGOT/AST 24 U/L (15-37)
[2017-02-07 12:10] LABS: TROPONIN I < 0.02 ng/ml (0.00-0.05)
[2017-02-07 13:02] VITALS: TEMP 97.9
[2017-02-07] MEDS ORDERED: METRONIDAZOLE 500 MG PREMIXED 100 ML IVPB ONE ×2 (14:13→14:35)
[2017-02-07] MEDS ORDERED: LEVOFLOXACIN 750 MG IVPB 150 ML IVPB ONE ×2 (14:13→14:34)
[2017-02-07] MEDS ORDERED: morphine CARPU-JECT 2 MG/1 ML DISP.SYRIN IVPUSH ONE (14:52)
[2017-02-07] MEDS ORDERED: morphine CARPU-JECT 2 MG/1 ML DISP.SYRIN ONE (15:24)
--- NOTE | 2017-02-07 17:07 | EKG ---
Test Reason : Blood Pressure : / mmHG Vent. Rate : 067 BPM Atrial Rate : 067 BPM P-R Int : 136 ms QRS Dur : 084 ms QT Int : 394 ms P-R-T Axes : 045 014 050 degrees QTc Int : 416 ms NORMAL SINUS RHYTHM NORMAL ECG WHEN COMPARED WITH ECG OF 25-SEP-2016 11:07, VENT. RATE HAS DECREASED BY 57 BPM Confirmed by GRACE RUBIN MD ([id number]) on 02/07/2017 5:07:10 PM Referred By: Confirmed By:GRACE RUBIN MD
[2017-02-07 17:16] VITALS: BP 140/87; PULSE 63
== END 2017-02-07 17:05 | disposition home or self-care (01) ==
LOC: JER 07:56
PROC: 3E03329 Introduction of Other Anti-infective into Peripheral Vein, Percutaneous Approach (ICD-10-PCS; principal; 2017-02-07)
PROC: 3E03329 Introduction of Other Anti-infective into Peripheral Vein, Percutaneous Approach (ICD-10-PCS; 2017-02-07)
PROC: 3E033NZ Introduction of Analgesics, Hypnotics, Sedatives into Peripheral Vein, Percutaneous Approach (ICD-10-PCS; 2017-02-07)
DX: K52.9 Noninfective gastroenteritis and colitis, unspecified (principal); E11.9 Type 2 diabetes mellitus without complications; Z79.84 Long term (current) use of oral hypoglycemic drugs; I25.10 Atherosclerotic heart disease of native coronary artery without angina pectoris; I10 Essential (primary) hypertension; F17.210 Nicotine dependence, cigarettes, uncomplicated; Z95.5 Presence of coronary angioplasty implant and graft; Z87.19 Personal history of other diseases of the digestive system; K57.20 Diverticulitis of large intestine with perforation and abscess without bleeding
CPT/HCPCS: 36415; 74177-TC; 80053; 81003; 82550; 82553; 83605; 83690; 84484; 85025; 93005; 93010; 99283-25; Q9967

== ENCOUNTER 2017-04-17 23:51 | Emergency (ER) | payer OTHER ==
--- NOTE | 2017-04-18 00:57 | PDOC ---
History of Present Illness - General Chief Complaint: Pain Stated Complaint: STOMACH PAIN Time Seen by Provider: 04/18/17 00:57 Past History - Past Medical History Allergies/Adverse Reactions: Allergies Allergy/AdvReac Type Severity Reaction Status Date / Time No Known Allergies Allergy Verified 04/18/17 00:54 Home Medications: Ambulatory Orders Atorvastatin Ca [Lipitor] 80 mg PO DAILY 09/25/16 Clopidogrel Bisulfate [Plavix -] 75 mg PO DAILY 09/25/16 Lisinopril [Zestril] 2.5 mg PO DAILY 09/25/16 Metformin HCl 500 mg PO DAILY 09/25/16 Metoprolol Succinate [Toprol XL -] 25 mg PO DAILY 09/25/16 Ciprofloxacin [Cipro -] 500 mg PO Q12H #20 tablet 02/07/17 Lipase/Protease/Amylase [Caro Deutsch 36,000 Units Capsule] 1 each PO TID 02/07/17 Metronidazole [Flagyl -] 500 mg PO DAILY #20 tablet 02/07/17 Anemia: No Asthma: No Cancer: No Cardiac Disorders: Yes (2015 [facility] STENT INSERTION) CVA: No COPD: No CHF: No Dementia: No Diabetes: Yes GI Disorders: Yes (DIVERTICULITIS) Disorders: No HTN: No Hypercholesterolemia: Yes Liver Disease: No Suicide Attempt (Hx): No Seizures: No Thyroid Disease: No - Surgical History Abdominal Surgery: Yes Appendectomy: No Cardiac Surgery: Yes (STENT) Cholecystectomy: Yes Lung Surgery: No Neurologic Surgery: No Orthopedic Surgery: No - Psycho/Social/Smoking Cessation Hx Anxiety: No Suicidal Ideation: No Smoking Status: Yes Smoking History: Current every day smoker Have you smoked in the past 12 months: Yes Number of Cigarettes Smoked Daily: 8 If you are a former smoker, when did you quit?: BEFORE AUGUST 17 2016 Cigars Per Day: 0 Information on smoking cessation initiated: No 'Breaking Loose' booklet given: 09/25/16 Hx Alcohol Use: No Drug/Substance Use Hx: No Substance Use Type: None Hx Substance Use Treatment: No *Physical Exam - Vital Signs Last Vital Signs Temp Pulse Resp BP Pulse Ox 98.3 F 75 14 124/99 97 04/18/17 00:54 04/18/17 00:54 04/18/17 00:54 04/18/17 00:54 04/18/17 00:54
--- NOTE | 2017-04-18 01:07 | PDOC ---
History of Present Illness - General Chief Complaint: Pain Stated Complaint: STOMACH PAIN Time Seen by Provider: 04/18/17 00:57 History Source: Patient Exam Limitations: No Limitations - History of Present Illness Initial Comments: This is a 52 yo male with h/o colitis, diverticulitis, DC with stent x2, NIDDM, HTN, HLD, and pancreatic disease who presents c/o lower abdominal pain. The pain started on Monday and has been worsening since that time. It is now at 10 /10 in the suprapubic region and both lower quadrants, is constant and non- radiating, and is not exacerbated or alleviated by any factors. He states that this is similar to his prior bout of colitis about a month ago. He notes recently finishing a course of cipro-Flagyl for this episode of colitis. He denies any fever, chills, nausea, vomiting, diarrhea, constipation, painful urination, testicular pain or swelling, back pain, rectal bleeding, or other recent symptoms. Past History - Past Medical History Allergies/Adverse Reactions: Allergies Allergy/AdvReac Type Severity Reaction Status Date / Time No Known Allergies Allergy Verified 04/18/17 00:54 Home Medications: Ambulatory Orders Atorvastatin Ca [Lipitor] 80 mg PO DAILY 09/25/16 Clopidogrel Bisulfate [Plavix -] 75 mg PO DAILY 09/25/16 Lisinopril [Zestril] 2.5 mg PO DAILY 09/25/16 Metformin HCl 500 mg PO DAILY 09/25/16 Metoprolol Succinate [Toprol XL -] 25 mg PO DAILY 09/25/16 Ciprofloxacin [Cipro -] 500 mg PO Q12H #20 tablet 02/07/17 Lipase/Protease/Amylase [Caro Deutsch 36,000 Units Capsule] 1 each PO TID 02/07/17 Levofloxacin [Levaquin] 750 mg PO DAILY #10 tab 04/18/17 Metronidazole [Flagyl -] 500 mg PO DAILY #20 tablet 04/18/17 Anemia: No Asthma: No Cancer: No Cardiac Disorders: Yes (2015 [facility] STENT INSERTION) CVA: No COPD: No CHF: No Dementia: No Diabetes: Yes GI Disorders: Yes (DIVERTICULITIS) Disorders: No HTN: No Hypercholesterolemia: Yes Liver Disease: No Suicide Attempt (Hx): No Seizures: No Thyroid Disease: No - Surgical History Abdominal Surgery: Yes Appendectomy: No Cardiac Surgery: Yes (STENT) Cholecystectomy: Yes Lung Surgery: No Neurologic Surgery: No Orthopedic Surgery: No - Psycho/Social/Smoking Cessation Hx Anxiety: No Suicidal Ideation: No Smoking Status: Yes Smoking History: Current every day smoker Have you smoked in the past 12 months: Yes Number of Cigarettes Smoked Daily: 8 If you are a former smoker, when did you quit?: BEFORE AUGUST 17 2016 Cigars Per Day: 0 Information on smoking cessation initiated: No 'Breaking Loose' booklet given: 09/25/16 Hx Alcohol Use: No Drug/Substance Use Hx: No Substance Use Type: None Hx Substance Use Treatment: No Review of Systems - Review of Systems Constitutional: No: Chills, Fever, Unexplained wgt Loss HEENTM: No: Nose Congestion, Throat Pain Respiratory: No: Cough, Shortness of Breath Cardiac (ROS): No: Chest Pain, Palpitations ABD/GI: Yes: Other (lower abdominal pain). No: Constipated, Diarrhea, Nausea, Vomiting : No: Burning, Dysuria, Urgency, Testicular Mass, Testicular Swelling, Testicular Pain Musculoskeletal: No: Back Pain, Neck Pain Integumentary: No: Bruising, Rash Neurological: No: Headache, Numbness, Tingling, Weakness, Dizziness Endocrine: No: Unexplained Weight Gain, Unexplained Weight Loss *Physical Exam - Vital Signs Last Vital Signs Temp Pulse Resp BP Pulse Ox 98.3 F 75 14 124/99 97 04/18/17 00:54 04/18/17 00:54 04/18/17 00:54 04/18/17 00:54 04/18/17 00:54 - Physical Exam General Appearance: Yes: Nourished, Appropriately Dressed, Apparent Distress, Moderate Distress, Other (intermittently in moderate distress and clutching lower abdomen but answering appropriately) HEENT: positive: EOMI, Normal Voice, Hearing Grossly Normal. negative: Scleral Icterus (R), Scleral Icterus (L), Nasal Congestion Neck: positive: Trachea midline, Supple. negative: Tender, Rigid Respiratory/Chest: positive: Lungs Clear, Normal Breath Sounds. negative: Respiratory Distress, Crackles, Rhonchi, Stridor, Wheezing Cardiovascular: positive: Regular Rhythm, Regular Rate. negative: Murmur Gastrointestinal/Abdominal: positive: Normal Bowel Sounds, Tender (moderate suprapubic tenderness with mild bilateral lower quadrant tenderness, no peritoneal signs, voluntary guarding), Protuberent, Distended. negative: Pulsatile Mass Male Genitalia: positive: normal genitalia. negative: discharge, testicular tenderness, testicular mass, epididymus tender, inguinal hernia Musculoskeletal: positive: Normal Inspection. negative: CVA Tenderness, Decreased Range of Motion, Vertebral Tenderness Extremity: positive: Normal Capillary Refill, Normal Inspection, Normal Range of Motion. negative: Tender, Cyanosis Integumentary: positive: Normal Color, Dry, Warm. negative: Erythema, Rash, Bruising Neurologic: positive: lamp wirer II-XII NML intact, Fully Oriented, Alert, Normal Mood/ Affect, Normal Response, Motor Strength 5/5 Heart Score/ECG Review #1 ECG reviewed & interpreted by me at: 04:00 Sinus rhythm, rate of 62, no ischemic changes ED Treatment Course - LABORATORY CBC & Chemistry Diagram: 04/18/17 01:41 04/18/17 02:37 - RADIOLOGY Radiograph Interpretation: Noncontrast CT abdomen & pelvis performed 04/18/17 impression: Segmental thickening of the ascending colon with infiltration of the mesocolon, centered around a diverticulum, consistent with acute diverticulitis. --Kishor Gottlieb MD Medical Decision Making - Medical Decision Making 52 yo male with h/o colitis, diverticulitis, DC w/ stent x2, DM, HTN, HLD who p/ w abdominal pain. Initially states pain is very low abdomen (points suprapubic region), states same as prior colitis. On exam vitals wnl, abdomen protuberant, moderate suprapubic ttp, no upper abdominal ttp. Ddx includes colitis, diverticulitis, UTI, appendicitis, ruptured or acutely expanded AAA. Ordered are CBC, CMP, UA w/ culture. WBC is 15.6k but otherwise bloodwork is nondirective. Pain is well controlled with Toradol 30 mg IV. Pt states he is having more pain in the upper abdomen now. EKG is ordered r/o ACS as Pt had DC with stent x2 in August. EKG without ischemic changes. UA is without e/o UTI or hematuria. CT Abdomen Pelvis WO Contrast consistent with diverticulitis. Pt's pain has been well controlled since his dose of Toradol hours prior to discharge. Vital signs are stable. He is appropriate for outpatient management on Levaquin/Flagyl and w/ PCP followup. *DC/Admit/Observation/Transfer Diagnosis at time of Disposition: Diverticulitis large intestine Qualifiers: Diverticulitis bleeding: unspecified bleeding status Diverticulitis complication: without perforation or abscess Qualified Code(s): K57.32 - Diverticulitis of large intestine without perforation or abscess without bleeding - Discharge Dispostion Disposition: HOME Condition at time of disposition: Stable Admit: No - Prescriptions Prescriptions: Metronidazole [Flagyl -] 500 mg PO DAILY #20 tablet Levofloxacin [Levaquin] 750 mg PO DAILY #10 tab - Referrals Referrals: Adilson Marinelli MD [Primary Care Provider] - - Patient Instructions Printed Discharge Instructions: DI for Diverticulitis Additional Instructions: You were seen today for lower abdominal pain. You had an elevated white blood cell count, and none of your lab work explained this, so we did a CT scan of the abdomen and found diverticulitis (inflammation of a small out-pouching of the colon). Your pain improved with Toradol here in the ED. We are prescribing a new antibiotic course for you: Levaquin and Flagyl. Please take these exactly as prescribed starting this afternoon. Please also see your regular doctor in follow-up, or return to the ED for fever, severe pain that does not improve with NSAIDs, or other emergency concerns.
[2017-04-18 01:12] VITALS: BP 124/99; PULSE 75; TEMP 98.3; BMI 36.9
[2017-04-18] MEDS ORDERED: KETOROLAC TROMETHAMINE 30 MG/1 ML VIAL IVPUSH ONE (01:32)
[2017-04-18] MEDS ORDERED: SODIUM CHLORIDE 500 ML IV STA (01:36)
[2017-04-18] MEDS ORDERED: KETOROLAC TROMETHAMINE 30 MG/1 ML VIAL ONE (01:40)
[2017-04-18 01:46] LABS: BASOPHIL 0.4 % (0-2.0); MCH 32.2 pg (25.7-33.7); MCHC 34.1 g/dl (32.0-35.9); MEAN CELL VOLUME 94.3 fl (80-96); MEAN PLT VOLUME 9.1 fl (7.5-11.1); NEUTROPHILS 76.2 % (42.8-82.8); PLATELET COUNT 171 K/MM3 (134-434); RDW 12.8 % (11.9-15.9); WHITE BLOOD COUNT 15.6 K/mm3 (4.0-10.0)
[2017-04-18 03:17] LABS: ALBUMIN 3.3 g/dl (3.4-5.0); ANION GAP 7 (8-16); CALCIUM 7.9 mg/dL (8.5-10.1); CO2 25 mmol/L (21-32); CREATININE 0.7 mg/dL (0.7-1.3); GLUCOSE,RANDOM 135 mg/dL (74-106); SGPT/ALT 41 U/L (12-78)
[2017-04-18 03:18] LABS: ALK PHOS 78 U/L (45-117); BILIRUBIN,TOTAL 0.7 mg/dL (0.2-1.0); TOT PROT 6.8 g/dl (6.4-8.2)
[2017-04-18 03:24] LABS: SGOT/AST 22 U/L (15-37)
[2017-04-18 03:32] LABS: URINE APPEARANCE CLEAR; URINE BILIRUBIN NEGATIVE (NEGATIVE); URINE BLOOD NEGATIVE (NEGATIVE); URINE COLOR STRAW; URINE GLUCOSE (UA) NEGATIVE (NEGATIVE); URINE KETONE NEGATIVE (NEGATIVE); URINE LEUK ESTERASE NEGATIVE (NEGATIVE); URINE NITRITE NEGATIVE (NEGATIVE); URINE PROTEIN NEGATIVE (NEGATIVE); URINE UROBILINOGEN NEGATIVE mg/dL (0.2-1.0)
--- NOTE | 2017-04-18 14:06 | EKG ---
Test Reason : Blood Pressure : / mmHG Vent. Rate : 062 BPM Atrial Rate : 062 BPM P-R Int : 134 ms QRS Dur : 086 ms QT Int : 408 ms P-R-T Axes : 052 030 045 degrees QTc Int : 414 ms NORMAL SINUS RHYTHM NORMAL ECG WHEN COMPARED WITH ECG OF 07-FEB-2017 09:48, NO SIGNIFICANT CHANGE WAS FOUND CLINICAL CORRELATION IS RECOMMENDED Confirmed by AXEL DEL CID MD ([id number]) on 04/18/2017 2:06:03 PM Referred By: Confirmed By:AXEL DEL CID MD
== END 2017-04-18 06:28 | disposition home or self-care (01) ==
LOC: JER 23:51
PROC: 3E0333Z Introduction of Anti-inflammatory into Peripheral Vein, Percutaneous Approach (ICD-10-PCS; principal; 2017-04-17)
DX: K57.32 Diverticulitis of large intestine without perforation or abscess without bleeding (principal); I25.2 Old myocardial infarction; I25.10 Atherosclerotic heart disease of native coronary artery without angina pectoris; I10 Essential (primary) hypertension; Z95.5 Presence of coronary angioplasty implant and graft; E78.00 Pure hypercholesterolemia, unspecified; E11.9 Type 2 diabetes mellitus without complications; Z79.84 Long term (current) use of oral hypoglycemic drugs; F17.210 Nicotine dependence, cigarettes, uncomplicated
CPT/HCPCS: 36415; 74176-TC; 80053; 81003; 85025; 87086; 93005; 93010; 99283-25